=== PATIENT | male | born 1960 | race African-American/Black ===

== ENCOUNTER 2018-05-08 08:05 | Emergency (ER) | payer OTHER ==
[~2018-05-08] VITALS: Ht 162.6 cm; Wt 77.1 kg
[~2018-05-08 08:05] MED LIST: CATAFLAM50 MG PO; KETO10TA2 PO; MUPIROCIN15 GM TP; NABUMETONE750 MG PO; ORPH100T PO; ZESTRIL20 MG PO
[2018-05-08] MEDS ORDERED: LIPITOR20 MG (08:15)
[2018-05-08] MEDS ORDERED: NEURONTIN300 MG (08:15)
[2018-05-08] MEDS ORDERED: KETO10TA2 PO (09:54)
[2018-05-08] MEDS ORDERED: NORFLEX100MG PO (09:54)
== END 2018-05-08 10:25 | disposition home or self-care (01) ==
LOC: ER 08:05
DX: M54.89 Other dorsalgia (principal)

== ENCOUNTER 2019-05-08 07:26 | Outpatient (CLI) | payer OTHER ==
[~2019-05-08 07:26] MED LIST changes: +LIPITOR20 MG; +NEURONTIN300 MG; +NORFLEX100MG PO
== END 2019-05-08 07:31 | disposition home or self-care (01) ==
LOC: SONOGRAMA 07:26 → MAMO-SONO 08:15
DX: K76.0 Fatty (change of) liver, not elsewhere classified (principal)

== ENCOUNTER 2019-09-04 07:30 | Outpatient (CLI) | payer OTHER | END 2019-09-04 07:38 | disposition home or self-care (01) | LOC: RAD 07:30 | DX: M51.87 Other intervertebral disc disorders, lumbosacral region (principal); M54.2 Cervicalgia; Z91.81 History of falling ==

== ENCOUNTER 2021-01-08 08:01 | Outpatient (CLI) | payer OTHER | END 2021-01-08 08:09 | disposition home or self-care (01) | LOC: SONOGRAMA 08:01 → MAMO-SONO 10:00 | PROVIDERS: ATTEND General Practice | DX: R94.5 Abnormal results of liver function studies (principal) ==

== ENCOUNTER 2021-05-11 10:52 | Outpatient (CLI) | payer OTHER | END 2021-05-11 11:02 | disposition home or self-care (01) | LOC: RAD 10:52 | PROVIDERS: ATTEND General Practice | DX: M54.89 Other dorsalgia (principal); G89.29 Other chronic pain ==

== ENCOUNTER 2021-05-25 11:11 | Outpatient (CLI) | payer OTHER | END 2021-05-25 11:16 | disposition home or self-care (01) | LOC: MRI 11:11 | PROVIDERS: ATTEND General Practice | DX: M48.07 Spinal stenosis, lumbosacral region (principal); M54.59 Other low back pain | CPT/HCPCS: 72148 ==

== ENCOUNTER 2021-11-27 07:40 | Outpatient (CLI) | payer OTHER | END 2021-11-27 07:53 | disposition home or self-care (01) | LOC: SONOGRAMA 07:40 | PROVIDERS: ATTEND General Practice | DX: K76.0 Fatty (change of) liver, not elsewhere classified (principal) ==

== ENCOUNTER 2024-01-22 11:53 | Emergency (ER) | payer OTHER ==
[~2024-01-22] VITALS: Ht 165.1 cm; Wt 79.4 kg
[2024-01-22] MEDS ORDERED: ORPHENADRINE CITRATE 30 MG/ML AMPUL IM STA (15:34)
[2024-01-22] MEDS ORDERED: KETOROLAC TROMETHAMINE 60 MG VIAL IM STA (15:34)
== END 2024-01-22 19:25 | disposition home or self-care (01) ==
LOC: ER 11:55
DX: S33.5XXA Sprain of ligaments of lumbar spine, initial encounter (principal); X58.XXXA Exposure to other specified factors, initial encounter; Y93.9 Activity, unspecified; Y92.9 Unspecified place or not applicable; Y99.9 Unspecified external cause status; I10 Essential (primary) hypertension
CPT/HCPCS: 96372; 99282; J1885; J2360

== ENCOUNTER 2024-02-29 07:35 | Outpatient (CLI) | payer OTHER | END 2024-02-29 07:40 | disposition home or self-care (01) | LOC: SONOGRAMA 07:35 | DX: K76.0 Fatty (change of) liver, not elsewhere classified (principal) ==

== ENCOUNTER 2024-10-24 07:49 | Emergency (ER) | payer OTHER ==
[~2024-10-24] VITALS: Ht 165.1 cm; Wt 83.9 kg
[2024-10-24] MEDS ORDERED: ORPHENADRINE CITRATE 30 MG/ML AMPUL IM STA (09:07)
[2024-10-24] MEDS ORDERED: KETOROLAC TROMETHAMINE 60 MG VIAL IM STA (09:08)
[2024-10-24] MEDS ORDERED: ORPHENADRINE CITRATE 30 MG/ML AMPUL ONE (09:49)
[2024-10-24] MEDS ORDERED: KETOROLAC TROMETHAMINE 60 MG VIAL IM ONE (09:50)
== END 2024-10-24 10:48 | disposition home or self-care (01) ==
LOC: ER 07:50
DX: M54.50 Low back pain, unspecified (principal)
CPT/HCPCS: 96372; 99282; J1885; J2360

== ENCOUNTER 2025-02-14 07:35 | Emergency (ER) | payer OTHER ==
[~2025-02-14] VITALS: Ht 165.1 cm; Wt 79.4 kg
[2025-02-14] MEDS ORDERED: DICLOFENAC SODI75 MG PO (08:23)
[2025-02-14] MEDS ORDERED: NORFLEX100MG PO (08:23)
[2025-02-14] MEDS ORDERED: TRIAMCINOLONE ACETONIDE 40 MG/ML VIAL ONE (08:25)
[2025-02-14] MEDS ORDERED: KETOROLAC TROMETHAMINE 60 MG VIAL IM ONE ×2 (08:26→08:30)
[2025-02-14] MEDS ORDERED: TRIAMCINOLONE ACETONIDE 40 MG/ML VIAL IM ONE (08:30)
== END 2025-02-14 08:43 | disposition home or self-care (01) ==
LOC: ER 07:45
DX: M54.9 Dorsalgia, unspecified (principal); M54.50 Low back pain, unspecified